=== PATIENT | female | born 1955 | race Caucasian/White ===

== ENCOUNTER 2022-02-23 14:25 | Emergency (ER) | payer SELFPAY ==
[2022-02-23 14:52] VITALS: BP 153/82; PULSE 92; RESP 18; TEMP 36.9; O2SAT 96
== END 2022-02-23 17:05 | disposition home or self-care (01) ==
DX: T14.8XXA Other injury of unspecified body region, initial encounter (principal); W55.01XA Bitten by cat, initial encounter